=== PATIENT | female | born 1975 | race African-American/Black ===

== ENCOUNTER 2017-09-21 09:39 | Emergency (ER) | payer MEDICAID, OTHER ==
[~2017-09-21] VITALS: Ht 162.6 cm; Wt 59.1 kg
[~2017-09-21 09:39] MED LIST: CITA20TA9 PO
[2017-09-21 12:42] LABS: BASOPHILS % (AUTO) 0.1 % (0.0-2.0); EOSINOPHILS % (AUTO) 1.6 % (1.0-6.0); HEMATOCRIT 34.7 % (36-46); HEMOGLOBIN 11.8 g/dL (12.0-16.0); LYMPHOCYTES # (AUTO) 1.3 K/uL (1.0-4.8); LYMPHOCYTES % (AUTO) 26.7 % (22.0-44.0); MEAN CORPUSCULAR HGB CONC 33.9 G/dL (31.0-37.0); MEAN CORPUSCULAR VOLUME 86 fL (80-100); MONOCYTES # (AUTO) 0.4 K/uL (0.1-1.0); MONOCYTES % (AUTO) 8.8 % (2.0-9.0); NEUTROPHILS # (AUTO) 3.1 K/uL (1.8-7.7); NEUTROPHILS % (AUTO) 62.8 % (40.0-70.0); PLATELET COUNT (AUTO) 284 K/uL (150-450); RED BLOOD CELL COUNT(AUTO) 4.05 MIL/uL (4.00-5.20); RED CELL DISTRIBUTION WIDTH 15.7 % (11.5-14.5)
[2017-09-21 12:53] LABS: ANION GAP 9 mmol/L (8-16); CALCIUM, TOTAL 9.2 mg/dL (8.8-10.5); CARBON DIOXIDE 28 mmol/L (22-29); CHLORIDE 99 mmol/L (98-107); CREATININE 0.69 mg/dL (0.60-1.30); GLOMERULAR FILTR. RATE CALC > 60 mL/min (>60); GLUCOSE,RANDOM 82 mg/dL (70-110); POTASSIUM 3.7 mmol/L (3.5-5.1); SODIUM SERUM 136 mmol/L (136-145); UREA NITROGEN, BLOOD 16 mg/dL (7-18)
[2017-09-21 13:00] LABS: ALANINE AMINOTRANSFERASE 32 U/L (12-78); ALBUMIN 3.5 g/dL (3.4-5.0); ALKALINE PHOSPHATASE 72 U/L (46-116); ASPARTATE AMINOTRANSFERASE 22 U/L (15-37); BILIRUBIN,TOTAL 0.2 mg/dL (0.1-1.0); TOTAL PROTEIN, SERUM 7.6 g/dL (6.4-8.2)
[2017-09-21] MEDS ORDERED: OLANZapine 5 MG TABLET PO ONE (13:30)
[2017-09-21 13:36] VITALS: BP 142/88
== END 2017-09-21 13:39 | disposition home or self-care (01) ==
LOC: EMS 09:40
DX: F25.9 Schizoaffective disorder, unspecified (principal); J45.909 Unspecified asthma, uncomplicated; E11.9 Type 2 diabetes mellitus without complications; I10 Essential (primary) hypertension; F17.210 Nicotine dependence, cigarettes, uncomplicated; Z59.0 Homelessness
CPT/HCPCS: 36415; 80053; 85025; 99284; 99406; G0480

== ENCOUNTER 2018-03-12 07:44 | Inpatient (IN) | payer MEDICAID, OTHER ==
[~2018-03-12] VITALS: Ht 167.6 cm; Wt 49.9 kg
[~2018-03-12 07:44] MED LIST changes: +CITA-106 PO; -CITA20TA9 PO
[2018-03-12 08:26] LABS: BASOPHILS % (AUTO) 0.6 % (0.0-2.0); EOSINOPHILS % (AUTO) 0.9 % (1.0-6.0); HEMATOCRIT 34.9 % (36-46); HEMOGLOBIN 11.7 g/dL (12.0-16.0); LYMPHOCYTES # (AUTO) 1.3 K/uL (1.0-4.8); LYMPHOCYTES % (AUTO) 30.5 % (22.0-44.0); MEAN CORPUSCULAR HEMOGLOBIN 29.4 pg (26.0-34.0); MEAN CORPUSCULAR HGB CONC 33.6 G/dL (31.0-37.0); MEAN CORPUSCULAR VOLUME 88 fL (80-100); MONOCYTES # (AUTO) 0.3 K/uL (0.1-1.0); MONOCYTES % (AUTO) 6.8 % (2.0-9.0); NEUTROPHILS # (AUTO) 2.6 K/uL (1.8-7.7); NEUTROPHILS % (AUTO) 61.2 % (40.0-70.0); PLATELET COUNT (AUTO) 197 K/uL (150-450); RED BLOOD CELL COUNT(AUTO) 3.98 MIL/uL (4.00-5.20); RED CELL DISTRIBUTION WIDTH 13.4 % (11.5-14.5)
[2018-03-12] MEDS ORDERED: LIDOCAINE HCL 1% 10 ML VIAL INJ ONE (08:30)
[2018-03-12 08:32] LABS: ANION GAP 6 mmol/L (8-16); CALCIUM, TOTAL 8.2 mg/dL (8.8-10.5); CARBON DIOXIDE 26 mmol/L (22-29); CHLORIDE 108 mmol/L (98-107); CREATININE 0.65 mg/dL (0.60-1.30); GLOMERULAR FILTR. RATE CALC > 60 mL/min (>60); GLUCOSE,RANDOM 100 mg/dL (70-110); POTASSIUM 3.9 mmol/L (3.5-5.1); SODIUM SERUM 140 mmol/L (136-145); UREA NITROGEN, BLOOD 14 mg/dL (7-18)
[2018-03-12 08:40] LABS: ALANINE AMINOTRANSFERASE 28 U/L (12-78); ALBUMIN 3.3 g/dL (3.4-5.0); ALKALINE PHOSPHATASE 70 U/L (46-116); ASPARTATE AMINOTRANSFERASE 32 U/L (15-37); BILIRUBIN,TOTAL 0.2 mg/dL (0.1-1.0)
[2018-03-12] MEDS ORDERED: HALOPERIDOL LACTATE 5 MG/ML VIAL IM ONE (12:45)
[2018-03-12] MEDS ORDERED: ACETAMINOPHEN 500 MG TABLET PO ONE (12:45)
[2018-03-12] MEDS ORDERED: DiphenhydrAMINE HCL 50 MG/ML VIAL IM ONE (12:45)
[2018-03-12] MEDS ORDERED: LORazepam 2 MG/ML VIAL IM ONE (12:45)
[2018-03-12] MEDS ORDERED: ZOLPIDEM TARTRATE 10 MG TABLET PO PRN (13:45)
[2018-03-12 14:03] LABS: AMPHET/METH SCREEN,URINE POSITIVE (NEGATIVE); BARBITURATE SCREEN, URINE NEGATIVE (NEGATIVE); BENZODIAZEPINES SCREEN,URINE POSITIVE (NEGATIVE); CANNABINOID SCREEN,URINE POSITIVE (NEGATIVE); COCAINE SCREEN,URINE NEGATIVE (NEGATIVE); METHADONE SCREEN, URINE NEGATIVE (NEGATIVE); OPIATE SCREEN,URINE NEGATIVE (NEGATIVE)
[2018-03-12 14:04] LABS: PHENCYCLIDINE SCREEN,URINE NEGATIVE (NEGATIVE)
[2018-03-12 14:29] LABS: CHOL/HDL RATIO 2.4 (3.9-5.7); CHOLESTEROL 152 mg/dL (131-200); HDL CHOLESTEROL 64 mg/dL (40-60); LDL CHOL (CALC.) 78 mg/dL (0-130); TRIGLYCERIDES 48 mg/dL (15-150)
[2018-03-12 16:18] VITALS: BP 112/71
[2018-03-12] MEDS ORDERED: ACETAMINOPHEN 325 MG TABLET PO PRN (19:45)
[2018-03-12] MEDS ORDERED: IBUPROFEN 600 MG TABLET PO PRN (19:45)
[2018-03-12] MEDS ORDERED: BENZOCAINE/MENTHOL LOZENGE MM PRN (19:45)
[2018-03-12] MEDS ORDERED: MAGNESIUM HYDROXIDE SUSPENSION 30 ML UDCUP PO PRN (19:45)
[2018-03-12] MEDS ORDERED: ALBUTEROL SULFATE HFA 90 MCG/PUFF 8 GM INHALER IH PRN (19:45)
[2018-03-12] MEDS ORDERED: CloNIDine HCL 0.1 MG TABLET PO PRN (19:45)
[2018-03-12] MEDS ORDERED: ONDANSETRON HCL 4 MG TABLET PO PRN (19:45)
[2018-03-12] MEDS ORDERED: MAG HYDROX/AL HYDROX/SIMETH ES 30 ML SUSPENSION UDCUP PO PRN (19:45)
[2018-03-12] MEDS ORDERED: BACITRACIN 28.4 GM OINTMENT TP PRN (19:45)
[2018-03-12] MEDS ORDERED: PETROLATUM,WHITE 71 GM JELLY TP PRN (19:45)
[2018-03-12] MEDS ORDERED: LOPERAMIDE HCL 2 MG CAPSULE PO PRN (19:45)
[2018-03-13 08:00] VITALS: BP 126/75
[2018-03-13] MEDS: OMEPRAZOLE 20 MG CAPSULE PO SCH (09:10)
[2018-03-13] MEDS: HALOPERIDOL 5 MG TABLET PO PRN (09:10)
[2018-03-13] MEDS: DOCUSATE SODIUM 100 MG CAPSULE PO SCH (09:10)
[2018-03-13] MEDS: BACITRACIN 28.4 GM OINTMENT TP SCH (09:10)
[2018-03-13] MEDS: LORazepam 2 MG TABLET PO PRN (09:10)
[2018-03-13] MEDS: CITALOPRAM HYDROBROMIDE 20 MG TABLET PO SCH (09:33)
[2018-03-13 16:02] VITALS: BP 117/78
[2018-03-13] MEDS ORDERED: INSULIN LISPRO 100 UNITS/ML SQ PRN (19:30)
[2018-03-13] MEDS ORDERED: GLUCAGON,HUMAN RECOMBINANT 1 MG VIAL IM PRN (19:30)
[2018-03-13] MEDS: RisperiDONE 1 MG TABLET PO SCH (20:32)
[2018-03-14 06:13] LABS: GLUCOMETER DEV NAME(LOC) BV3S 2; GLUCOSE,POINT OF CARE 104 MG/DL (70-110)
[2018-03-14 06:46] VITALS: BP 116/70
[2018-03-14 08:09] VITALS: BP 119/72
[2018-03-14] MEDS: LORazepam 2 MG TABLET PO PRN (08:19)
[2018-03-14] MEDS: NICOTINE 21 MG/24 HOUR PATCH TD SCH (08:19)
[2018-03-14] MEDS: BACITRACIN 28.4 GM OINTMENT TP SCH (08:19)
[2018-03-14] MEDS: HALOPERIDOL 5 MG TABLET PO PRN (08:19)
[2018-03-14] MEDS: CITALOPRAM HYDROBROMIDE 20 MG TABLET PO SCH (08:19)
[2018-03-14] MEDS: OMEPRAZOLE 20 MG CAPSULE PO SCH (08:19)
[2018-03-14] MEDS: DOCUSATE SODIUM 100 MG CAPSULE PO SCH (08:19)
[2018-03-14 08:23] LABS: HEMOGLOBIN A1C 5.6 % (4.5-6.2)
[2018-03-14 08:28] LABS: % IRON SATURATION 7.8 % (22-44)
[2018-03-14 10:57] LABS: GLUCOMETER DEV NAME(LOC) BV3S 2; GLUCOSE,POINT OF CARE 105 MG/DL (70-110)
[2018-03-14 11:02] LABS: GLUCOMETER DEV NAME(LOC) BV3S 2; GLUCOSE,POINT OF CARE 115 MG/DL (70-110)
[2018-03-14] MEDS: CHOLECALCIFEROL (VIT D3) 1,000 UNITS TABLET PO SCH (13:23)
[2018-03-14 16:03] VITALS: BP 110/67
[2018-03-14] MEDS: FERROUS SULFATE 325 MG EC TABLET PO SCH (16:53)
[2018-03-14] MEDS: RisperiDONE 1 MG TABLET PO SCH (20:17)
[2018-03-14 20:33] LABS: GLUCOMETER DEV NAME(LOC) BV3S 2; GLUCOSE,POINT OF CARE 92 MG/DL (70-110)
[2018-03-14 20:33] LABS: GLUCOMETER DEV NAME(LOC) BV3S 2; GLUCOSE,POINT OF CARE 122 MG/DL (70-110)
[2018-03-15 06:31] VITALS: BP 110/75
[2018-03-15 06:38] LABS: GLUCOMETER DEV NAME(LOC) BV3S 2; GLUCOSE,POINT OF CARE 86 MG/DL (70-110)
[2018-03-15] MEDS: FERROUS SULFATE 325 MG EC TABLET PO SCH ×2 (06:40→16:38)
[2018-03-15 08:15] VITALS: BP 97/66
[2018-03-15] MEDS: NICOTINE 21 MG/24 HOUR PATCH TD SCH (09:03)
[2018-03-15] MEDS: CITALOPRAM HYDROBROMIDE 20 MG TABLET PO SCH (09:03)
[2018-03-15] MEDS: OMEPRAZOLE 20 MG CAPSULE PO SCH (09:03)
[2018-03-15] MEDS: DOCUSATE SODIUM 100 MG CAPSULE PO SCH (09:03)
[2018-03-15] MEDS: CHOLECALCIFEROL (VIT D3) 1,000 UNITS TABLET PO SCH (09:04)
[2018-03-15] MEDS: BACITRACIN 28.4 GM OINTMENT TP SCH (09:05)
[2018-03-15 12:23] LABS: GLUCOMETER DEV NAME(LOC) BV3S 2; GLUCOSE,POINT OF CARE 79 MG/DL (70-110)
[2018-03-15 16:10] VITALS: BP 115/76
[2018-03-15 17:13] LABS: GLUCOMETER DEV NAME(LOC) BV3S 2; GLUCOSE,POINT OF CARE 97 MG/DL (70-110)
[2018-03-15] MEDS: RisperiDONE 1 MG TABLET PO SCH (20:59)
[2018-03-15 21:57] LABS: GLUCOMETER DEV NAME(LOC) BV3S 2; GLUCOSE,POINT OF CARE 96 MG/DL (70-110)
[2018-03-16 06:05] VITALS: BP 116/83
[2018-03-16 06:28] LABS: GLUCOMETER DEV NAME(LOC) BV3S 2; GLUCOSE,POINT OF CARE 89 MG/DL (70-110)
[2018-03-16] MEDS: FERROUS SULFATE 325 MG EC TABLET PO SCH ×2 (06:31→16:27)
[2018-03-16 08:22] VITALS: BP 107/70
[2018-03-16] MEDS: DOCUSATE SODIUM 100 MG CAPSULE PO SCH (09:00)
[2018-03-16] MEDS: NICOTINE 21 MG/24 HOUR PATCH TD SCH (09:00)
[2018-03-16] MEDS: BACITRACIN 28.4 GM OINTMENT TP SCH (09:00)
[2018-03-16] MEDS: CHOLECALCIFEROL (VIT D3) 1,000 UNITS TABLET PO SCH (09:00)
[2018-03-16] MEDS: OMEPRAZOLE 20 MG CAPSULE PO SCH (09:00)
[2018-03-16] MEDS: CITALOPRAM HYDROBROMIDE 20 MG TABLET PO SCH (09:00)
[2018-03-16 16:35] VITALS: BP 112/77
[2018-03-16] MEDS: RisperiDONE 1 MG TABLET PO SCH (20:13)
[2018-03-17 05:53] VITALS: BP 124/74
[2018-03-17] MEDS: FERROUS SULFATE 325 MG EC TABLET PO SCH ×2 (06:32→16:24)
[2018-03-17 08:16] VITALS: BP 120/66
[2018-03-17] MEDS: OMEPRAZOLE 20 MG CAPSULE PO SCH ×2 (08:17→09:00)
[2018-03-17] MEDS: CHOLECALCIFEROL (VIT D3) 1,000 UNITS TABLET PO SCH ×2 (08:17→09:00)
[2018-03-17] MEDS: BACITRACIN 28.4 GM OINTMENT TP SCH ×2 (08:17→09:00)
[2018-03-17] MEDS: CITALOPRAM HYDROBROMIDE 20 MG TABLET PO SCH ×2 (08:17→09:00)
[2018-03-17] MEDS: DOCUSATE SODIUM 100 MG CAPSULE PO SCH ×2 (08:17→09:00)
[2018-03-17] MEDS: NICOTINE 21 MG/24 HOUR PATCH TD SCH ×2 (08:17→09:00)
[2018-03-17 16:00] VITALS: BP 115/66
[2018-03-17] MEDS: LORazepam 2 MG TABLET PO PRN (16:24)
[2018-03-17] MEDS: RisperiDONE 1 MG TABLET PO SCH (20:19)
[2018-03-18 02:35] VITALS: BP 117/68
[2018-03-18] MEDS: FERROUS SULFATE 325 MG EC TABLET PO SCH ×2 (06:53→17:23)
[2018-03-18 08:19] VITALS: BP 114/69
[2018-03-18] MEDS: DOCUSATE SODIUM 100 MG CAPSULE PO SCH (08:48)
[2018-03-18] MEDS: CITALOPRAM HYDROBROMIDE 20 MG TABLET PO SCH (08:48)
[2018-03-18] MEDS: HALOPERIDOL 5 MG TABLET PO PRN (08:48)
[2018-03-18] MEDS: CHOLECALCIFEROL (VIT D3) 1,000 UNITS TABLET PO SCH (08:48)
[2018-03-18] MEDS: BACITRACIN 28.4 GM OINTMENT TP SCH (08:48)
[2018-03-18] MEDS: LORazepam 2 MG TABLET PO PRN (08:48)
[2018-03-18] MEDS: OMEPRAZOLE 20 MG CAPSULE PO SCH (08:48)
[2018-03-18] MEDS: NICOTINE 21 MG/24 HOUR PATCH TD SCH (08:56)
[2018-03-18 16:19] VITALS: BP 106/65
[2018-03-18] MEDS: RisperiDONE 1 MG TABLET PO SCH (21:00)
[2018-03-19 06:55] VITALS: BP 96/60
[2018-03-19] MEDS: FERROUS SULFATE 325 MG EC TABLET PO SCH ×2 (07:12→16:55)
[2018-03-19 08:39] VITALS: BP 105/57
[2018-03-19] MEDS: CHOLECALCIFEROL (VIT D3) 1,000 UNITS TABLET PO SCH (08:49)
[2018-03-19] MEDS: DOCUSATE SODIUM 100 MG CAPSULE PO SCH (08:49)
[2018-03-19] MEDS: CITALOPRAM HYDROBROMIDE 20 MG TABLET PO SCH (08:49)
[2018-03-19] MEDS: OMEPRAZOLE 20 MG CAPSULE PO SCH (08:49)
[2018-03-19 16:06] VITALS: BP 114/67
[2018-03-19] MEDS: RisperiDONE 1 MG TABLET PO SCH (20:39)
[2018-03-20 04:16] VITALS: BP 101/70
[2018-03-20] MEDS: FERROUS SULFATE 325 MG EC TABLET PO SCH ×2 (06:38→16:26)
[2018-03-20 08:35] VITALS: BP 102/61
[2018-03-20] MEDS: DOCUSATE SODIUM 100 MG CAPSULE PO SCH (08:57)
[2018-03-20] MEDS: OMEPRAZOLE 20 MG CAPSULE PO SCH (08:57)
[2018-03-20] MEDS: CITALOPRAM HYDROBROMIDE 20 MG TABLET PO SCH (08:57)
[2018-03-20] MEDS: CHOLECALCIFEROL (VIT D3) 1,000 UNITS TABLET PO SCH (08:57)
[2018-03-20 16:16] VITALS: BP 110/79
[2018-03-20] MEDS ORDERED: RISP1 PO (16:30)
[2018-03-20] MEDS ORDERED: CITA-106 PO (16:31)
[2018-03-20] MEDS ORDERED: DSS100 PO (16:32)
[2018-03-20] MEDS ORDERED: FERR-89 PO (16:32)
[2018-03-20] MEDS ORDERED: OMEP20 PO (16:32)
== END 2018-03-20 17:35 | disposition home or self-care (01) | DRG 740 ==
LOC: EMS 07:45 → B2S 14:44 → B3A 16:00
PROVIDERS: ATTEND Psychiatry & Neurology Child & Adolescent Psychiatry
PROC: 0XQLXZZ Repair Right Thumb, External Approach (ICD-10-PCS; principal; 2018-03-12)
PROC: 0XQDXZZ Repair Right Lower Arm, External Approach (ICD-10-PCS; 2018-03-12)
DX: F33.3 Major depressive disorder, recurrent, severe with psychotic symptoms (principal); I10 Essential (primary) hypertension; E11.9 Type 2 diabetes mellitus without complications; D64.9 Anemia, unspecified; E55.9 Vitamin D deficiency, unspecified; F15.10 Other stimulant abuse, uncomplicated; F14.90 Cocaine use, unspecified, uncomplicated; G89.29 Other chronic pain; J45.909 Unspecified asthma, uncomplicated; S51.811A Laceration without foreign body of right forearm, initial encounter; M54.9 Dorsalgia, unspecified; F17.210 Nicotine dependence, cigarettes, uncomplicated; R45.87 Impulsiveness; S61.511A Laceration without foreign body of right wrist, initial encounter; S61.011A Laceration without foreign body of right thumb without damage to nail, initial encounter; X99.0XXA Assault by sharp glass, initial encounter; F12.10 Cannabis abuse, uncomplicated; Y93.89 Activity, other specified; Z59.0 Homelessness; Z71.6 Tobacco abuse counseling; Y92.89 Other specified places as the place of occurrence of the external cause; Y99.8 Other external cause status; Z56.0 Unemployment, unspecified; Z71.51 Drug abuse counseling and surveillance of drug abuser; Z79.899 Other long term (current) drug therapy
CPT/HCPCS: 12002; 82306; 83036; 83540; 83550; 86361; 96372; 99285; G0480; J1200; J1630; J2060; J3490

== ENCOUNTER 2019-11-27 20:37 | Emergency (ER) | payer MEDICAID ==
[~2019-11-27] VITALS: Ht 162.6 cm; Wt 67.3 kg
[~2019-11-27 20:37] MED LIST changes: +DSS100 PO; +FERR-89 PO; +OMEP20 PO; +RISP1 PO
[2019-11-27 21:01] VITALS: BP 158/98
== END 2019-11-27 21:55 | disposition left against medical advice (07) ==
LOC: EMS 20:38
DX: Z76.0 Encounter for issue of repeat prescription (principal); Z53.21 Procedure and treatment not carried out due to patient leaving prior to being seen by health care provider

== ENCOUNTER 2020-02-13 09:02 | Emergency (ER) | payer MEDICAID ==
[~2020-02-13] VITALS: Ht 165.1 cm; Wt 52.9 kg
[~2020-02-13 09:02] MED LIST changes: -CITA-106 PO; +CITA-144 PO
[2020-02-13] MEDS ORDERED: AMOXICILLIN TRIHYDRATE 250 MG CAPSULE PO ONE (10:30)
[2020-02-13] MEDS ORDERED: ACETAMINOPHEN 500 MG TABLET PO ONE (10:30)
[2020-02-13 10:59] VITALS: BP 133/90
== END 2020-02-13 11:41 | disposition home or self-care (01) ==
LOC: EMS 09:06
DX: J02.9 Acute pharyngitis, unspecified (principal); F20.9 Schizophrenia, unspecified; F15.10 Other stimulant abuse, uncomplicated; J45.909 Unspecified asthma, uncomplicated; F32.9 Major depressive disorder, single episode, unspecified; E11.9 Type 2 diabetes mellitus without complications; I10 Essential (primary) hypertension; F17.210 Nicotine dependence, cigarettes, uncomplicated; F14.90 Cocaine use, unspecified, uncomplicated; Z59.0 Homelessness

== ENCOUNTER 2020-03-31 20:17 | Emergency (ER) | payer MEDICAID ==
[~2020-03-31] VITALS: Ht 162.6 cm; Wt 44.5 kg
[~2020-03-31 20:17] MED LIST changes: -DSS100 PO; -FERR-89 PO; -OMEP20 PO; -RISP1 PO
[2020-03-31 20:41] VITALS: BP 147/98
[2020-03-31] MEDS ORDERED: BACITRACIN 0.9 GM PACKET OINTMENT TP ONE (22:45)
[2020-03-31] MEDS ORDERED: PERTUSS(ACELL),DIPH,TET VAC/PF 0.5 ML VIAL IM ONE (22:45)
== END 2020-03-31 23:00 | disposition home or self-care (01) ==
LOC: EMS 20:27
DX: S60.812A Abrasion of left wrist, initial encounter (principal); F32.9 Major depressive disorder, single episode, unspecified; F20.9 Schizophrenia, unspecified; J45.909 Unspecified asthma, uncomplicated; E11.9 Type 2 diabetes mellitus without complications; I10 Essential (primary) hypertension; F17.210 Nicotine dependence, cigarettes, uncomplicated; F14.90 Cocaine use, unspecified, uncomplicated; F15.10 Other stimulant abuse, uncomplicated; Z59.0 Homelessness; Y04.0XXA Assault by unarmed brawl or fight, initial encounter; Y93.89 Activity, other specified; Y92.89 Other specified places as the place of occurrence of the external cause; Y99.8 Other external cause status
CPT/HCPCS: 90471; 90715

== ENCOUNTER 2021-11-12 11:16 | Emergency (ER) | payer MEDICAID, OTHER ==
[~2021-11-12] VITALS: Ht 162.6 cm; Wt 47.7 kg
[2021-11-12 12:42] LABS: COVID AG,FIA SOURCE NASOPHARYNGEAL
[2021-11-12 13:14] LABS: APPEARANCE,URINE CLEAR (CLEAR); BILIRUBIN,URINE NEGATIVE (NEGATIVE); GLUCOSE, URINE (UA) NEGATIVE (NEGATIVE); KETONES,URINE 40 mg/dL (NEGATIVE); LEUKOCYTE ESTERASE ,URINE TRACE (NEGATIVE); NITRATE,URINE POSITIVE (NEGATIVE); OCCULT BLOOD,URINE LARGE (NEGATIVE); PH,URINE 7.5 (5.0-8.0); PROTEIN,URINE SEE CONFIRM (NEGATIVE)
[2021-11-12 13:32] LABS: SULFOSALICYLIC ACID,URINE 1+ (Negative)
[2021-11-12 13:33] LABS: BACTERIA,URINE Few /HPF (None Seen); WBC,URINE 0-2 /HPF (0-5)
[2021-11-12 13:34] LABS: SQUAMOUS EPITHELIAL CELL,UR Few /LPF (None Seen); TRIPLE PHOSPHATE CRYSTAL,UR Many /LPF (None Seen)
[2021-11-12] MEDS ORDERED: MACR100 PO (15:23)
[2021-11-12 15:37] VITALS: BP 153/95
== END 2021-11-12 15:55 | disposition home or self-care (01) ==
LOC: EMS 11:23
DX: S60.221A Contusion of right hand, initial encounter (principal); N30.90 Cystitis, unspecified without hematuria; F25.9 Schizoaffective disorder, unspecified; F31.9 Bipolar disorder, unspecified; F17.210 Nicotine dependence, cigarettes, uncomplicated; Z79.899 Other long term (current) drug therapy; Z20.822 Contact with and (suspected) exposure to COVID-19; W22.8XXA Striking against or struck by other objects, initial encounter; Y93.89 Activity, other specified; Y92.89 Other specified places as the place of occurrence of the external cause; Y99.8 Other external cause status
CPT/HCPCS: 81001; 81002; 99284; 73130-TC; Z7502

== ENCOUNTER 2023-04-12 06:11 | Emergency (ER) | payer OTHER ==
[~2023-04-12] VITALS: Ht 167.6 cm; Wt 75.0 kg
[~2023-04-12 06:11] MED LIST changes: +NITR-75 PO
[2023-04-12 06:33] VITALS: TEMP 98.4
[2023-04-12] MEDS ORDERED: LIDOCAINE 1% 10 ML VIAL SQ ONE (08:00)
[2023-04-12] MEDS ORDERED: HYDROCODONE/ACETAMINOPHEN 5-325 MG TABLET PO ONE (08:00)
[2023-04-12] MEDS ORDERED: CLINDAMYCIN HCL 150 MG CAPSULE PO ONE (08:00)
[2023-04-12 09:17] VITALS: BP 130/82; PULSE 92; RESP 18
[2023-04-12] MEDS ORDERED: CLIN-142 PO (09:39)
== END 2023-04-12 09:57 | disposition home or self-care (01) ==
LOC: EMS 06:13
DX: L02.811 Cutaneous abscess of head [any part, except face] (principal); F31.9 Bipolar disorder, unspecified; F20.9 Schizophrenia, unspecified; I63.9 Cerebral infarction, unspecified; F17.210 Nicotine dependence, cigarettes, uncomplicated; Z59.00 Homelessness unspecified
CPT/HCPCS: 99283; 10060; 81025; J3490

== ENCOUNTER 2023-07-12 08:23 | Emergency (ER) | payer OTHER ==
[~2023-07-12] VITALS: Ht 167.6 cm; Wt 75.0 kg
[~2023-07-12 08:23] MED LIST changes: +CLIN-142 PO
[2023-07-12 08:26] VITALS: BP 127/75; PULSE 86; RESP 16; TEMP 98.2
[2023-07-12 09:16] LABS: BASOPHILS % (AUTO) 0.9 % (0.0-2.0); EOSINOPHILS % (AUTO) 0.4 % (1.0-6.0); HEMATOCRIT 40.4 % (36-46); HEMOGLOBIN 13.5 g/dL (12.0-16.0); LYMPHOCYTES # (AUTO) 1.5 K/uL (1.0-4.8); MEAN CORPUSCULAR HEMOGLOBIN 29.8 pg (26.0-34.0); MEAN CORPUSCULAR HGB CONC 33.3 G/dL (31.0-37.0); MEAN CORPUSCULAR VOLUME 89 fL (80-100); MONOCYTES # (AUTO) 0.3 K/uL (0.1-1.0); MONOCYTES % (AUTO) 7.3 % (2.0-9.0); NEUTROPHILS # (AUTO) 2.6 K/uL (1.8-7.7); NEUTROPHILS % (AUTO) 58.4 % (40.0-70.0); PLATELET COUNT (AUTO) 238 K/uL (150-450); RED BLOOD CELL COUNT(AUTO) 4.53 MIL/uL (4.00-5.20); RED CELL DISTRIBUTION WIDTH 14.4 % (11.5-14.5); WHITE BLOOD COUNT (AUTO) 4.5 K/uL (4.5-11.0)
[2023-07-12 09:24] LABS: ANION GAP 9 mmol/L (8-16); CALCIUM, TOTAL 9.6 mg/dL (8.8-10.5); CARBON DIOXIDE 26 mmol/L (22-29); CHLORIDE 101 mmol/L (98-107); CREATININE 0.79 mg/dL (0.60-1.30); GLOMERULAR FILTR. RATE CALC > 60 mL/min (>60); GLUCOSE,RANDOM 82 mg/dL (70-110); POTASSIUM 3.7 mmol/L (3.5-5.1); SODIUM SERUM 136 mmol/L (136-145); UREA NITROGEN, BLOOD 17 mg/dL (7-18)
[2023-07-12] MEDS ORDERED: LORazepam 1 MG TABLET PO ONE (09:30)
[2023-07-12 09:32] LABS: ALANINE AMINOTRANSFERASE 68 U/L (12-78); ALKALINE PHOSPHATASE 98 U/L (46-116); ASPARTATE AMINOTRANSFERASE 57 U/L (15-37); BILIRUBIN,TOTAL 0.9 mg/dL (0.1-1.0); TOTAL PROTEIN, SERUM 7.8 g/dL (6.4-8.2)
[2023-07-12 09:33] LABS: ALCOHOL, BLOOD (SERUM) 46 mg/dL (0-10)
[2023-07-12] MEDS ORDERED: OLANZapine 5 MG TABLET PO ONE (11:00)
== END 2023-07-12 11:14 | disposition home or self-care (01) ==
LOC: EMS 08:25
DX: F29 Unspecified psychosis not due to a substance or known physiological condition (principal); F10.20 Alcohol dependence, uncomplicated; F31.9 Bipolar disorder, unspecified; F20.9 Schizophrenia, unspecified; F17.210 Nicotine dependence, cigarettes, uncomplicated; Z59.00 Homelessness unspecified; Y90.9 Presence of alcohol in blood, level not specified
CPT/HCPCS: 99283; 80053; 85025; 36415; G0480